=== PATIENT | female | born 1985 | race Caucasian/White ===

== ENCOUNTER 2019-01-04 14:16 | Outpatient (CLI) | payer OTHER, MEDICAID | END 2019-01-04 17:22 | disposition home or self-care (01) | LOC: OBT 14:16 → L-D 14:17 → OBT 17:22 | DX: O36.8130 Decreased fetal movements, third trimester, not applicable or unspecified (principal); Z3A.38 38 weeks gestation of pregnancy | CPT/HCPCS: 76818 ==

== ENCOUNTER 2019-01-09 11:08 | Inpatient (IN) | payer OTHER ==
[2019-01-09] MEDS ORDERED: BUTORPHANOL 2 MG INJ IV (11:30)
[2019-01-09] MEDS ORDERED: IBUPROFEN 600 MG TAB PO (11:30)
[2019-01-09] MEDS ORDERED: MISOPROSTOL 200 MCG TAB PR (11:30)
[2019-01-09] MEDS ORDERED: LIDOCAINE 1% (MPF) 30 ML INJ INJ (11:30)
[2019-01-09] MEDS ORDERED: CARBOPROST 250 MCG INJ IM (11:30)
[2019-01-09] MEDS ORDERED: BUTORPHANOL 1 MG INJ IV (11:30)
[2019-01-09] MEDS ORDERED: METHYLERGONOVINE 0.2 MG INJ IM (11:30)
[2019-01-09] MEDS ORDERED: OXYTOCIN 30 UNITS/LR 500 ML IV ×3 (11:30)
[2019-01-09 11:59] LABS: ADD MAN DIFF? NO
[2019-01-09 12:07] LABS: WHITE BLOOD COUNT 7.2 10^3/ul (4.8-10.8)
[2019-01-09 12:07] LABS: BASOPHILS % 0.4 % (0.0-2.0); EOSINOPHILS # 0.1 10^3/ul (0.0-0.5); EOSINOPHILS % 0.8 % (0.0-7.0); HEMATOCRIT 34.9 % (37.0-47.0); HEMOGLOBIN 11.8 g/dl (12.0-16.0); LYMPHOCYTES # 1.9 10^3/ul (0.8-2.9); LYMPHOCYTES % 25.6 % (15.0-51.0); MEAN CORPUSCULAR HEMOGLOBIN 29.6 pg (29.0-33.0); MEAN CORPUSCULAR HGB CONC 33.8 g/dl (32.0-37.0); MEAN CORPUSCULAR VOLUME 87.7 fl (82.0-101.0); MEAN PLATELET VOLUME 11.4 fl (7.4-10.4); MONOCYTE # 0.4 10^3/ul (0.3-0.9); NEUTROPHIL # 4.9 10^3/ul (1.6-7.5); NEUTROPHILS % 67.9 % (39.0-77.0); PLATELET COUNT 209 10^3/UL (140-415); RED BLOOD COUNT 3.98 10^6/ul (4.20-5.40); RED CELL DISTRIBUTION WIDTH 13.7 % (11.5-14.5)
[2019-01-09] MEDS: LACTATED RINGER'S 1,000 ML IV ×2 (12:11→21:32)
[2019-01-09 12:19] LABS: INR 0.97
[2019-01-09 12:20] LABS: PARTIAL THROMBOPLASTIN TIME 22.7 Sec (23.0-35.0)
[2019-01-09 12:53] LABS: HEPATITIS B SURFACE ANTIGEN NEGATIVE (NEGATIVE)
[2019-01-09] MEDS: MISOPROSTOL 50 MCG CAPSULE VAG ×2 (14:20→22:25)
[2019-01-09 16:48] LABS: RAPID PLASMA REAGIN NONREACTIVE (NR)
[2019-01-09] MEDS: AMPICILLIN 2 GM/NS (PMX) 100 ML IV (17:04)
[2019-01-09] MEDS: AMPICILLIN 1 GM/NS (PMX) 50 ML IV (21:11)
[2019-01-10] MEDS: AMPICILLIN 1 GM/NS (PMX) 50 ML IV ×8 (00:52→23:17)
[2019-01-10] MEDS: MISOPROSTOL 50 MCG CAPSULE VAG ×7 (02:46→21:24)
[2019-01-10] MEDS: LACTATED RINGER'S 1,000 ML IV ×3 (06:09→21:24)
[2019-01-11] MEDS: AMPICILLIN 1 GM/NS (PMX) 50 ML IV (00:35)
[2019-01-11] MEDS ORDERED: ONDANSETRON 4 MG INJ IV ×2 (01:00→10:00)
[2019-01-11] MEDS ORDERED: DIPHENHYDRAMINE 50 MG INJ IV ×2 (01:00→10:00)
[2019-01-11] MEDS ORDERED: FENTAnyl 2MCG/ML-ROPIV 0.2% 100 ML BAG EPI (01:00)
[2019-01-11] MEDS ORDERED: NALOXONE (0.4 MG/ML) INJ IV (01:00)
[2019-01-11] MEDS: OXYTOCIN 30 UNITS/LR 500 ML IV ×2 (03:23→11:10)
[2019-01-11] MEDS: LACTATED RINGER'S 1,000 ML IV ×4 (03:25→15:29)
[2019-01-11] MEDS ORDERED: OXYTOCIN 30 UNITS/LR 500 ML BAG IV ×2 (07:00)
[2019-01-11] MEDS ORDERED: CEFAZOLIN 2 GM/50 ML (PMX) 50 ML IVPB (07:21)
[2019-01-11] MEDS: CEFAZOLIN 2 GM/50 ML (PMX) 50 ML IVPB ×3 (07:30→16:19)
[2019-01-11] MEDS ORDERED: METHYLERGONOVINE 0.2 MG INJ IM (08:30)
[2019-01-11] MEDS ORDERED: OXYTOCIN 30 UNITS/LR 500 ML IV (08:30)
[2019-01-11] MEDS ORDERED: METHYLERGONOVINE 0.2 MG TAB PO (08:30)
[2019-01-11] MEDS ORDERED: CARBOPROST 250 MCG INJ IM (08:30)
[2019-01-11] MEDS ORDERED: NA PHOSPHATE/BIPHOS 133 ML ENEMA PR (08:30)
[2019-01-11] MEDS ORDERED: MISOPROSTOL 200 MCG TAB PR (08:30)
[2019-01-11] MEDS ORDERED: OXYTOCIN 10 UNIT INJ (08:44)
[2019-01-11] MEDS ORDERED: ONDANSETRON 4 MG INJ (08:44)
[2019-01-11] MEDS: SENNA/DOCUSATE NA (8.6MG/50MG) TAB PO ×2 (09:00→21:00)
[2019-01-11] MEDS ORDERED: morphine SULFATE/PF (10 MG/10 ML) INJ (09:39)
[2019-01-11] MEDS ORDERED: KETOROLAC 30 MG INJ IV (10:00)
[2019-01-11] MEDS: KETOROLAC 30 MG INJ IV ×3 (10:32→21:31)
[2019-01-11] MEDS: morphine 2 MG INJ IV (11:56)
[2019-01-11] MEDS ORDERED: IBUPROFEN 800 MG TAB PO (14:00)
[2019-01-12] MEDS: CEFAZOLIN 2 GM/50 ML (PMX) 50 ML IVPB (00:05)
[2019-01-12] MEDS: LACTATED RINGER'S 1,000 ML IV (01:34)
[2019-01-12] MEDS: KETOROLAC 30 MG INJ IV ×4 (04:14→21:00)
[2019-01-12 08:01] LABS: ADD MAN DIFF? NO
[2019-01-12 08:05] LABS: WHITE BLOOD COUNT 8.2 10^3/ul (4.8-10.8)
[2019-01-12 08:05] LABS: BASOPHILS % 0.2 % (0.0-2.0); EOSINOPHILS % 0.4 % (0.0-7.0); LYMPHOCYTES # 1.6 10^3/ul (0.8-2.9); LYMPHOCYTES % 19.5 % (15.0-51.0); MEAN CORPUSCULAR HEMOGLOBIN 29.2 pg (29.0-33.0); MEAN CORPUSCULAR HGB CONC 33.3 g/dl (32.0-37.0); MEAN CORPUSCULAR VOLUME 87.7 fl (82.0-101.0); MEAN PLATELET VOLUME 11.5 fl (7.4-10.4); MONOCYTE # 0.3 10^3/ul (0.3-0.9); MONOCYTES % 4.2 % (0.0-11.0); NEUTROPHIL # 6.1 10^3/ul (1.6-7.5); NEUTROPHILS % 75.2 % (39.0-77.0); PLATELET COUNT 155 10^3/UL (140-415); RED BLOOD COUNT 3.42 10^6/ul (4.20-5.40); RED CELL DISTRIBUTION WIDTH 13.5 % (11.5-14.5)
[2019-01-12] MEDS: SENNA/DOCUSATE NA (8.6MG/50MG) TAB PO ×2 (08:52→21:00)
[2019-01-12] MEDS: HYDROCODONE/APAP (5/325) TAB PO (21:46)
[2019-01-12] MEDS: LANOLIN HPA 1 PKT TOP (21:47)
[2019-01-13] MEDS: KETOROLAC 30 MG INJ IV ×2 (03:00→09:00)
[2019-01-13] MEDS: HYDROCODONE/APAP (5/325) TAB PO (03:56)
[2019-01-13] MEDS: SENNA/DOCUSATE NA (8.6MG/50MG) TAB PO (09:54)
[2019-01-14] MEDS ORDERED: DIPHTH/TET/ACEL PERTUSS (ADULT) 0.5 ML VIAL IM* (09:00)
[2019-01-14] MEDS ORDERED: MEASLES,MUMPS,RUBELLA VACCINE INJ SC* (09:00)
== END 2019-01-13 13:20 | disposition home or self-care (01) | DRG 788 ==
LOC: L-D 11:08 → PP1 01-11 13:01
PROVIDERS: Obstetrics & Gynecology
PROC: 10D00Z1 Extraction of Products of Conception, Low, Open Approach (ICD-10-PCS; principal; 2019-01-11 09:00)
DX: O69.81X0 Labor and delivery complicated by cord around neck, without compression, not applicable or unspecified (principal); O76 Abnormality in fetal heart rate and rhythm complicating labor and delivery; O61.0 Failed medical induction of labor; O99.02 Anemia complicating childbirth; Z3A.39 39 weeks gestation of pregnancy; Z37.0 Single live birth
CPT/HCPCS: 62319; 76815; 85025; 85610; 85730; 86592; 86850; 86900; 86901; 87340